=== PATIENT | male | born 1990 | race Caucasian/White ===

== ENCOUNTER 2016-06-05 08:09 | Emergency (ER) | payer OTHER ==
[~2016-06-05] VITALS: Ht 180.3 cm; Wt 79.5 kg
[~2016-06-05 08:09] MED LIST: NO HOME MEDICATIONS; XOPENEX HF0.045 MG/A IH; ZOFRAN 4MG T4 MG/TAB PO
[2016-06-05 08:11] VITALS: TEMP 98.2
[2016-06-05] MEDS ORDERED: NORCO 325 MG-51 TAB PO (09:01)
[2016-06-05 09:02] VITALS: BP 131/94; PULSE 84
== END 2016-06-05 09:12 | disposition home or self-care (01) ==
LOC: COL.ER 08:09
DX: S90.111A Contusion of right great toe without damage to nail, initial encounter (principal); W22.8XXA Striking against or struck by other objects, initial encounter